=== PATIENT | female | born 1935 | race Caucasian/White ===

== ENCOUNTER 2020-04-01 13:30 | Outpatient (RCR) | payer MEDICARE, BC ==
[~2020-04-01 13:30] MED LIST: ASPIRIN E.C. 8181 MG PO; CEPHALEXIN500 M1 PO; K-DUR 10 MEQ T10 MEQ PO; LASIX 20MG TABL20 MG PO; MULTAQ400 MG PO; TIAZAC120 MG PO; TYLENOL 325MG325 MG PO; ZANTAC 150MG T150 MG PO
== END 2020-06-21 | disposition home or self-care (01) ==
LOC: WSST
DX: J38.3 Other diseases of vocal cords (principal)

== ENCOUNTER 2021-02-18 07:52 | Day surgery (SDC) | payer MEDICARE, BC ==
[~2021-02-18] VITALS: Ht 160 cm; Wt 64.5 kg
[2021-02-18] VITALS (12 sets, daily range): BP systolic 131–1168; BP diastolic 51–84; PULSE 62–80; TEMP 97.9
[2021-02-18 08:40] LABS: HEMATOCRIT 38.3 % (37.0-47.0); HEMOGLOBIN 12.5 g/dl (12.5-16.0); MEAN CELL VOLUME 93 fl (80.0-100.0); MEAN CORPUSCULAR HEMOGLOBIN 31 pg (27.0-31.0); MEAN CORPUSCULAR HGB CONC 33 g/dl (33.0-37.0); MEAN PLATELET VOLUME 11.7 fl (7.4-10.4); PLATELET COUNT 209 K/mm3 (130-400); REDCELL DISTRIBUTION WIDTH-CV 15.7 % (11.5-14.5)
[2021-02-18 08:44] LABS: PROTHROMBIN TIME 10.5 SECONDS (9.7-12.8)
[2021-02-18 08:47] LABS: CALCIUM 9.4 mg/dL (8.4-10.2); CREATININE, serum 2.3 (0.52-1.25); POTASSIUM 3.8 mmol/L (3.4-5.0)
[2021-02-18] MEDS ORDERED: AMOXICILLIN 50500 MG PO (09:06)
[2021-02-18] MEDS ORDERED: COLCRYS0.6 MG PO (09:08)
[2021-02-18] MEDS ORDERED: PEPCID AC 10MG10 MG PO (09:09)
[2021-02-18] MEDS ORDERED: APRESOLINE 25MG25 MG PO (09:10)
[2021-02-18] MEDS ORDERED: IMDUR 30MG30 MG/TAB PO (09:10)
--- NOTE | 2021-02-18 10:18 | NUR ---
SEE MERGE DOCUMENTATION FOR MEDICATION ADMINISTRATION TIMES AND INTRA/POST PROCEDURE SEDATION ASSESSMENTS.
--- NOTE | 2021-02-18 11:29 | NUR ---
Report from Julissa LIRIANO. Transferred from cath laboratory technician by bed. right Tband with 14 cc air CD&I, good pulses and cap refill < 3 secs. VSS. Daughter bedside
--- NOTE | 2021-02-18 15:32 | NUR ---
14 cc air released from right Tband and dressing applied. INT discontinued intact. Up to bathroom and groin site remains CD&I.
--- NOTE | 2021-02-18 16:10 | NUR ---
Discharge instructions given to pt/daughter. Transferred to private car by jeniffer
== END 2021-02-18 16:16 | disposition home or self-care (01) ==
LOC: COL.CAR 07:52
PROVIDERS: Internal Medicine Cardiovascular Disease
DX: R06.00 Dyspnea, unspecified (principal); R06.02 Shortness of breath; N28.9 Disorder of kidney and ureter, unspecified; I10 Essential (primary) hypertension; I08.3 Combined rheumatic disorders of mitral, aortic and tricuspid valves; Z79.899 Other long term (current) drug therapy; Z79.82 Long term (current) use of aspirin
CPT/HCPCS: C1769; C1894; J1644; J3010; Q9967

== ENCOUNTER → 2021-05-30 | Outpatient (CLI) | payer MEDICARE, BC ==
[~2021-05-30] MED LIST changes: +AMOXICILLIN 50500 MG PO; +APRESOLINE 25MG25 MG PO; +COLCRYS0.6 MG PO; +IMDUR 30MG30 MG/TAB PO; +PEPCID AC 10MG10 MG PO
== END ==
LOC: ZCOL.LAB 13:14
DX: R07.89 Other chest pain (principal)

== ENCOUNTER 2022-10-05 06:36 | Day surgery (SDC) | payer MEDICARE, BC ==
[~2022-10-05] VITALS: Ht 160.1 cm; Wt 64.0 kg
[2022-10-05] VITALS (17 sets, daily range): BP systolic 125–170; BP diastolic 50–87; PULSE 52–68; TEMP 59–97.9
[2022-10-05 08:11] LABS: MEAN CELL VOLUME 93 fl (80.0-100.0); MEAN CORPUSCULAR HEMOGLOBIN 31 pg (27-31); MEAN CORPUSCULAR HGB CONC 34 g/dl (33.0-37.0); MEAN PLATELET VOLUME 11.9 fl (7.4-10.4); PLATELET COUNT 193 K/mm3 (130-400); RED BLOOD COUNT 3.83 M/mm3 (4.10-5.30)
[2022-10-05 08:12] LABS: HEMATOCRIT 35.7 % (37.0-47.0)
[2022-10-05 08:25] LABS: CALCIUM 9.2 mg/dL (8.4-10.2); CREATININE, serum 2.14 mg/dL (0.57-1.11); POTASSIUM 4.6 mmol/L (3.5-4.5)
[2022-10-05 08:35] LABS: PROTHROMBIN TIME 11.1 SECONDS (9.7-12.8)
[2022-10-05] MEDS ORDERED: BIOTENE DRY M1000 ML MM (08:37)
[2022-10-05 08:38] LABS: PARTIAL THROMBOPLASTIN TIME 27.9 SECONDS (26.0-37.0)
[2022-10-05] MEDS ORDERED: ZYLOPRIM 300MG300 MG PO (08:42)
--- NOTE | 2022-10-05 10:02 | NUR ---
Report from DEANDRA Maynard.Will await patient's arrival.
--- NOTE | 2022-10-05 10:20 | NUR ---
Pt returned from procedure,report from DEANDRA Borges>
--- NOTE | 2022-10-05 11:15 | NUR ---
Discharge instructions given to pt.pt verbalises understanding.Pt escorted out via wheelchair by this nurse.
--- NOTE | 2022-10-05 15:15 | NUR ---
Discharge instructions given to pt.Pt verbalizes understanding.Pt escorted out via wheelchair by this nurse.
== END 2022-10-05 16:14 ==
LOC: COL.CAR 06:36
PROVIDERS: Internal Medicine Cardiovascular Disease
DX: R07.89 Other chest pain (principal)
CPT/HCPCS: J1644; J2250; J3010; Q9967